=== PATIENT | male | born 1950 | race Caucasian/White ===

== ENCOUNTER → 2016-08-02 | Outpatient (CLI) | payer MEDICARE, OTHER | END | disposition home or self-care (01) | LOC: PCVCCLINIC 10:31 | PROVIDERS: ATTEND Internal Medicine Cardiovascular Disease | DX: E78.1 Pure hyperglyceridemia (principal); I10 Essential (primary) hypertension; R09.89 Other specified symptoms and signs involving the circulatory and respiratory systems; E11.9 Type 2 diabetes mellitus without complications; Z84.89 Family history of other specified conditions | CPT/HCPCS: 80061; 93005; G0463 ==

== ENCOUNTER → 2017-07-25 | Outpatient (CLI) | payer MEDICARE, OTHER | END | disposition home or self-care (01) | LOC: PCVCCLINIC 12:36 | DX: E78.00 Pure hypercholesterolemia, unspecified (principal); I10 Essential (primary) hypertension; E11.9 Type 2 diabetes mellitus without complications; I65.23 Occlusion and stenosis of bilateral carotid arteries; Z82.49 Family history of ischemic heart disease and other diseases of the circulatory system; Z79.84 Long term (current) use of oral hypoglycemic drugs; Z79.899 Other long term (current) drug therapy | CPT/HCPCS: 80061; 93005; G0463 ==

== ENCOUNTER → 2017-09-28 | Outpatient (CLI) | payer MEDICARE, OTHER | END | disposition home or self-care (01) | LOC: PCVCIMAG 09:43 | DX: R09.89 Other specified symptoms and signs involving the circulatory and respiratory systems (principal); I48.92 Unspecified atrial flutter; I10 Essential (primary) hypertension; E11.9 Type 2 diabetes mellitus without complications; E78.00 Pure hypercholesterolemia, unspecified; R94.31 Abnormal electrocardiogram [ECG] [EKG]; Z79.899 Other long term (current) drug therapy | CPT/HCPCS: 93005; 93880; G0463 ==

== ENCOUNTER → 2018-06-13 | Outpatient (CLI) | payer MEDICARE, OTHER ==
[~2018-06-13] MED LIST: REGADENOSON 0.4 MG/5 ML DISP.SYRIN. IV ONE
== END | disposition home or self-care (01) ==
LOC: PCVCCLINIC 14:06
PROVIDERS: ATTEND Internal Medicine Cardiovascular Disease
DX: I25.10 Atherosclerotic heart disease of native coronary artery without angina pectoris (principal); I48.0 Paroxysmal atrial fibrillation; I10 Essential (primary) hypertension; E11.9 Type 2 diabetes mellitus without complications; Z79.899 Other long term (current) drug therapy
CPT/HCPCS: 36415; 80061; 93005; G0463; J2785

== ENCOUNTER → 2018-06-14 | Outpatient (CLI) | payer MEDICARE, OTHER ==
--- NOTE | 2018-06-14 12:47 | PCVCIMAG ---
APPROVED REPORT Study performed: 06/14/2018 11:05:30 EXAM: Comprehensive 2D, Doppler, and color-flow Echocardiogram Patient Location: Echo lab Status: routine BSA: 2.46 HR: 62 bpmBP: 146/84 mmHg Rhythm: Atrial Fibrillation Other Information Study Quality: Adequate Risk Factors: Cardiac Risk Factors: DM, HTN Indications Atrial Fibrillation CAD 2D Dimensions IVSd: 10.49 (7-11mm) LVDd: 44.39 mm PWd: 10.17 (7-11mm)Ascending Ao: 32.61 (22-36mm) LVDs: 34.71 (25-40mm) Left Atrium: 36.76 (27-40mm) Aortic Root: 31.76 mm LV Single Plane 4CH: 50.56 % LV Single Plane 2CH: 52.03 % Biplane EF: 51.8 % Volumes Left Atrial Volume (Systole) Single Plane 4CH: 85.54 mLSingle Plane 2CH: 102.74 mL LA ESV Index: 38.00 mL/m2 Aortic Valve AoV Peak Brenton.: 1.26 m/s AO Peak Gr.: 6.33 mmHgLVOT Max P.89 mmHg LVOT Max V: 0.85 m/s Mitral Valve E/A Ratio: 2.0 MV Decel. Time: 283.45 ms MV E Max Brenton.: 0.57 m/s MV A Brenton.: 0.29 m/s IVRT: 124.57 ms Pulmonary Valve PV Peak Brenton.: 0.81 m/sPV Peak Gr.: 2.63 mmHg Pulmonary Vein P Vein S: 0.39 m/s P Vein D: 0.63 m/s P Vein S/D Ratio: 0.62 Tricuspid Valve TR Peak Brenton.: 2.33 m/s TR Peak Gr.: 21.68 mmHg Left Ventricle The left ventricle is normal size. There is normal LV segmental wall motion. There is normal left ventricular wall thickness. The left ventricular systolic function is normal. The left ventricular ejection fraction is within the lower limits of normal range. LVEF is 52%. Grade II - pseudonormal filling dynamics. Right Ventricle The right ventricle is normal size. The right ventricular systolic function is normal. Atria Left atrium is mildly dilated. Right atrium is mildly dilated. Aortic Valve The aortic valve is normal in structure. No aortic regurgitation is present. There is no aortic valvular stenosis. Mitral Valve The mitral valve is normal in structure. There is no mitral valve regurgitation noted. No evidence of mitral valve stenosis. Tricuspid Valve The tricuspid valve is normal in structure. Trace tricuspid regurgitation with PAP of 29 mmHg. Pulmonic Valve The pulmonary valve is normal in structure. There is no pulmonic valvular regurgitation. Great Vessels The aortic root is normal in size. IVC is normal in size and collapses >50% with inspiration. Pericardium There is no pericardial effusion. There is no pleural effusion. <Conclusion> The left ventricle is normal size. LVEF is 52%. Grade II - pseudonormal filling dynamics. The right ventricle is normal size. Left atrium is mildly dilated. Right atrium is mildly dilated. The aortic valve is normal in structure. There is no mitral valve regurgitation noted. There is no mitral valve regurgitation noted. Trace tricuspid regurgitation with PAP of 29 mmHg. The aortic root is normal in size. There is no pericardial effusion.
--- NOTE | 2018-06-14 17:10 | PCVCIMAG ---
APPROVED REPORT Imaging Protocol: Rest Tc-99m/Stress Tc-99m 1 day Study performed: 06/14/2018 12:41:56 Indication: Afib, CAD Patient Location: Out-Patient Stress Nurse: Keisha Iraheta RN, Lita Lara RN NM Tech:Adams Smith NMDIONY Ht: 6 ft 2 in Wt: 268 lbs BSA: 2.46 m2 HR: 58 bpm BP: 157/74 mmHg BMI: 34.4 Rhythm: Sinus Bradycardia, First Degree AV Block Medical History Medical History: Age, Hyperlipidemia, HTN, CVD, DM Medications: Eliquis, Coreg, Klonopin, Losartan, Crestor Allergies: No known drug allergies Previous Cardiac Procedures: Cath 2018 Exercise History: Physically active Meds Held (24 hrs): Coreg Resting Data Rest SPECT myocardial perfusion imaging was performed in supine position 45 minutes following the intravenous injection of 12 mCi of Tc-99m Sestamibi. Time of rest injection: 1200 Date: 06/14/2018 Administration Route: IV Administration Site: Right AC Pharmacologic Stress Pharmacologic stress test was performed by injecting Regadenoson 0.4 mg IV push over 10-15 seconds immediately followed by the intravenous injection of 36 mCi of Tc-99m Sestamibi. Time of stress injection: 1310 Date: 06/14/2018 Administration Route: IV Administration Site: Right AC Gated Stress SPECT was performed 45 minutes after stress injection. The images were gated to evaluate regional wall motion and calculate left ventricular ejection fraction. Stress Test Details Stress Test: Pharmacologic stress testing performed using 0.4 mg of regadenoson per 5 mL given IV over 10 seconds. Reason for pharmacologic stress test: Excercise Intolerance. HRMax Heart Rate (APMHR): 152 bpm Resting HR: 58 bpmTarget HR (85% APMHR): 129 bpm Max HR Achieved: 88 bpm % of APMHR: 57 Recovery HR: 76 bpm BP Resting BP: 157/74 mmHg Max BP: 151/74 mmHg Recovery BP: 149/72 mmHg ECG Resting ECG: Sinus Bradycardia, 1st degree AV block Stress ECG: Sinus Bradycardia, 1st degree AV block Arrhythmia: None Recovery ECG: Sinus Bradycardia, 1st degree AV block Clinical Reason for Termination: Completed protocol Stress Symptoms: Dyspnea, Headache Exercise duration: min 55 sec Symptoms resolved during recovery. Stress ECG Conclusion ECG: Non-ischemic Study Quality Study: Good Study Data Post stress, the left ventricular ejection was 67%.. TID = 1.07. Perfusion No evidence of stress induced ischemia or prior myocardial infarction. Wall Motion Normal left ventricular size and function with no regional wall motion abnormalities. Nuclear Conclusion No evidence of stress induced ischemia or prior myocardial infarction. Normal left ventricular size and function with no regional wall motion abnormalities. Post stress, the left ventricular ejection was 67%. No change since prior study dated 2015. Interpreted by: Wayne Patel MD Electronically Approved: 06/14/2018 15:32:28 <Conclusion> ECG: Non-ischemic
== END ==
LOC: PCVCIMAG 11:34
PROVIDERS: ATTEND Internal Medicine Cardiovascular Disease
DX: I48.92 Unspecified atrial flutter (principal); I25.10 Atherosclerotic heart disease of native coronary artery without angina pectoris; E78.5 Hyperlipidemia, unspecified; I10 Essential (primary) hypertension; E11.9 Type 2 diabetes mellitus without complications; I48.3 Typical atrial flutter
CPT/HCPCS: 78452; 93017; 93306; A9500